=== PATIENT | female | born 1975 | race Caucasian/White ===

== ENCOUNTER 2016-04-26 19:18 | Emergency (ER) | payer OTHER ==
[~2016-04-26] VITALS: Ht 157.5 cm; Wt 76.2 kg
[~2016-04-26 19:18] MED LIST: AMITRIPTYLINE H10 MG PO; LORTAB 7.5/3251 TAB PO
[2016-04-26 20:06] LABS: HEMOGLOBIN 14.5 g/dL (12.2-16.2); LYMPH # 2.4 K/mm3 (0.7-4.5); LYMPH % 32.9 % (10-50.0)
[2016-04-26 20:15] LABS: BUN 14 mg/dL (7-18)
[2016-04-26 20:16] LABS: GFR (ESTIMATED) 93 ML/MIN (59-)
--- NOTE | 2016-04-26 20:57 | Emergency Room Report ---
History of Present Illness Time Seen by [id number] Presenting Problem in Triage Pt arrived:Walked Presenting Problem:PT COMPLAINING OF SHORTNESS OF BREATH. PT STATES SHE FEELS LIKE SHE CAN'T TAKE A DEEP BREATH. PT STATES THAT SHE HAS BEEN HAVING THIS FOR ALMOST 2 WEEKS BUT IT HAS GOTTEN WORSE TONIGHT. 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 N Clinical Suspician of Infection? N Mental Status: 1 - Regular (Normal Baseline) Sepsis Risk:Low Sepsis Risk Have you (or family members/close friends) recently traveled outside the [place]? N If Yes, where/when: Have you had exposure to infectious disease within the past month? N TB? Other? Specify: Source patient, RN notes reviewed, family, old records Exam Limitations no limitations Comment pt with chest pain assoc with insp and no prod cough and no trauma or rash - has hx of aortic valve replacement - no hemotysis and no fever - this has been going on for a few days Cardiac Chest Pain Chest pain indicative of cardiac No Timing/Duration this evening Severity moderate ALLERGIES Coded Allergies: codeine (04/26/16) Home Medications Reported Medications No Known Home Medications History Medical History General CAD? No Angina: No [place]: No Hypertension? No Hyperlipidemia? No CHF? No DVT? No PE? No COPD? No Asthma? No Anemia? No GERD? No Gastric ulcers? No GI Bleed? No Hernia? No Thyroid Problems? No Hypothyroidism? No CVA? No Seizures? No Diabetes? No Renal Insuffiency? No End Stage Renal Disease? No UTI? No Stones? Yes BPH? No GB Disease: Yes Nephritic Syndrome? No Asplenia? No Hepatitis? No Sickle Cell Disease? No Arthritis? No Migraines? No Cataracts? No Glaucoma? No MRSA? No HIV? No TB? No Anxiety? No Depression? No Cancer? No More? 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 Respiratory cough, denies shortness of breath, denies wheezing Cardiovascular denies chest pain, denies palpitations, denies syncope Gastrointestinal denies abdominal pain, denies diarrhea, denies vomiting Genitourinary denies: dysuria, frequency, hesitancy, hematuria. Musculoskeletal denies back pain, denies joint pain, denies joint swelling, denies neck pain Skin denies rash Psychiatric/Neurological denies headache, denies seizure Physical Exam Vital Signs Vital Signs Date Time Temp Pulse Resp B/P Pulse O2 O2 Flow FiO2 Ox Delivery Rate 04/26 2030 89 16 135/77 98 04/26 1958 18 04/26 1920 98.2 94 18 150/88 99 - WBC >12,000 or <4,000 or 10% bands? 2 or more SIRS Criteria Met? B/P:135/77 MAP:108 Creatinine >2.0? UA output<0.5ml/kg/hr for 2 hrs? Platelet count >100,000? Lactate >2.0mmol/1? INR >1.2 or PTT > than 60 sec? Evidence of Organ Dysfunction? Provider documented clinical suspician of infection? N Sepsis Criteria Count: 1 Sepsis Risk: Low Sepsis Risk General Appearance no apparent distress Eye Exam - bilateral eye PERRL, bilateral eye EOMI Ear, Nose, Throat normal ENT inspection Neck supple Respiratory Status No: respiratory distress. Lung Sounds bilateral: lungs clear. 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 No Results/Orders Laboratory Tests 04/26/16 1950: Sodium 140, Potassium 3.6, Chloride 103, Carbon Dioxide 29, BUN 14, Creatinine 0.7, Estimated Creat Clear 130, Estimated GFR (MDRD) 93, Glucose 107 H, Calcium 9.3, Total Bilirubin 0.7, AST 12 L, ALT 27, Alkaline Phosphatase 94, Creatine Kinase 45, CK-MB (CK-2) Rel Index 1.3, CK and CKMB Interp 0.6, Troponin I < 0.02 , Total Protein 8.4 H, Albumin 3.8, Globulin 4.6 H, Albumin/Globulin Ratio 0.8 L, D-Dimer 215, WBC 7.2, RBC 4.81, Hgb 14.5, Hct 42.7, MCV 88.8, RDW 12.9, Plt Count 218, MPV 9.1, Gran % 58.7, Gran # 4.2, Lymphocytes % 32.9, Monocytes % 6.3 , Eosinophils % 1.2, Basophils % 0.7, Lymphocytes # 2.4, Monocytes # 0.5, Eosinophils # 0.1, Basophils # 0.1, PUBS MCHC 34.0, MCH 30.2 Current Medication Orders Sig/Jonathan Start time Last Medication Dose Route Stop Time Status Admin Ketorolac 30 MG ONCE ONE 04/26 1999 DC 04/26 Tromethamine IV 04/26 Ondansetron HCl 4 MG ONCE ONE 04/26 1999 DC 04/26 IV 04/26 Ketorolac 0 .STK-MED ONE 04/26 1956 DC Tromethamine .ROUTE Ondansetron HCl 0 .STK-MED ONE 04/26 1956 DC .ROUTE Sodium Chloride 10 ML PRN PRN 04/26 1929 AC IV 04/27 1928 Orders Procedure Date/time Status ELECTROCARDIOGRAM REQUEST 04/26 1929 Active CHEST(2 VIEWS-NOT PORTABLE) 04/26 1929 Active IV SALINE LOCK 04/26 1929 Active D-DIMER 04/26 1929 Complete CBC WITH AUTO DIFF 04/26 1929 Complete CARDIAC ENZYMES 04/26 1929 Complete CHEM 12 PROFILE 04/26 1929 Complete 12 LEAD EKG-LALA (INITIAL) 04/26 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 ST/Twave chgs XRAY/CT/US XRAY/CT/US XRAY chest XR interpretation by reviewed by me Xray Results normal/NAD Departure Departure Time of Disposition 2104 Disposition DC Home or Self Care(routine) Clinical Impression Primary Impression: Pleurisy Condition STABLE Referrals Dave Ramirez MD (Family) Patient Instructions DI for Pleurisy Additional Instructions fluids and see pcp in am for follow up Discharge Counseling Counseled pt/family regarding diagnosis, test results, medications/RX, follow up needs Prescriptions Current Visit Scripts No Known Home Medications ED Critical Care Critical Care No at 210
--- NOTE | 2016-04-26 20:57 | Emergency Room Report ---
History of Present Illness Time Seen by [id number] Presenting Problem in Triage Pt arrived:Walked Presenting Problem:PT COMPLAINING OF SHORTNESS OF BREATH. PT STATES SHE FEELS LIKE SHE CAN'T TAKE A DEEP BREATH. PT STATES THAT SHE HAS BEEN HAVING THIS FOR ALMOST 2 WEEKS BUT IT HAS GOTTEN WORSE TONIGHT. 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 N Clinical Suspician of Infection? N Mental Status: 1 - Regular (Normal Baseline) Sepsis Risk:Low Sepsis Risk Have you (or family members/close friends) recently traveled outside the [place]? N If Yes, where/when: Have you had exposure to infectious disease within the past month? N TB? Other? Specify: Source patient, RN notes reviewed, family, old records Exam Limitations no limitations Comment pt with chest pain assoc with insp and no prod cough and no trauma or rash - has hx of aortic valve replacement - no hemotysis and no fever - this has been going on for a few days Cardiac Chest Pain Chest pain indicative of cardiac No Timing/Duration this evening Severity moderate ALLERGIES Coded Allergies: codeine (04/26/16) Home Medications Reported Medications No Known Home Medications History Medical History General CAD? No Angina: No [place]: No Hypertension? No Hyperlipidemia? No CHF? No DVT? No PE? No COPD? No Asthma? No Anemia? No GERD? No Gastric ulcers? No GI Bleed? No Hernia? No Thyroid Problems? No Hypothyroidism? No CVA? No Seizures? No Diabetes? No Renal Insuffiency? No End Stage Renal Disease? No UTI? No Stones? Yes BPH? No GB Disease: Yes Nephritic Syndrome? No Asplenia? No Hepatitis? No Sickle Cell Disease? No Arthritis? No Migraines? No Cataracts? No Glaucoma? No MRSA? No HIV? No TB? No Anxiety? No Depression? No Cancer? No More? 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 Respiratory cough, denies shortness of breath, denies wheezing Cardiovascular denies chest pain, denies palpitations, denies syncope Gastrointestinal denies abdominal pain, denies diarrhea, denies vomiting Genitourinary denies: dysuria, frequency, hesitancy, hematuria. Musculoskeletal denies back pain, denies joint pain, denies joint swelling, denies neck pain Skin denies rash Psychiatric/Neurological denies headache, denies seizure Physical Exam Vital Signs Vital Signs Date Time Temp Pulse Resp B/P Pulse O2 O2 Flow FiO2 Ox Delivery Rate 04/26 2030 89 16 135/77 98 04/26 1958 18 04/26 1920 98.2 94 18 150/88 99 - WBC >12,000 or <4,000 or 10% bands? 2 or more SIRS Criteria Met? B/P:135/77 MAP:108 Creatinine >2.0? UA output<0.5ml/kg/hr for 2 hrs? Platelet count >100,000? Lactate >2.0mmol/1? INR >1.2 or PTT > than 60 sec? Evidence of Organ Dysfunction? Provider documented clinical suspician of infection? N Sepsis Criteria Count: 1 Sepsis Risk: Low Sepsis Risk General Appearance no apparent distress Eye Exam - bilateral eye PERRL, bilateral eye EOMI Ear, Nose, Throat normal ENT inspection Neck supple Respiratory Status No: respiratory distress. Lung Sounds bilateral: lungs clear. 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 No Results/Orders Laboratory Tests 04/26/16 1950: Sodium 140, Potassium 3.6, Chloride 103, Carbon Dioxide 29, BUN 14, Creatinine 0.7, Estimated Creat Clear 130, Estimated GFR (MDRD) 93, Glucose 107 H, Calcium 9.3, Total Bilirubin 0.7, AST 12 L, ALT 27, Alkaline Phosphatase 94, Creatine Kinase 45, CK-MB (CK-2) Rel Index 1.3, CK and CKMB Interp 0.6, Troponin I < 0.02 , Total Protein 8.4 H, Albumin 3.8, Globulin 4.6 H, Albumin/Globulin Ratio 0.8 L, D-Dimer 215, WBC 7.2, RBC 4.81, Hgb 14.5, Hct 42.7, MCV 88.8, RDW 12.9, Plt Count 218, MPV 9.1, Gran % 58.7, Gran # 4.2, Lymphocytes % 32.9, Monocytes % 6.3 , Eosinophils % 1.2, Basophils % 0.7, Lymphocytes # 2.4, Monocytes # 0.5, Eosinophils # 0.1, Basophils # 0.1, PUBS MCHC 34.0, MCH 30.2 Current Medication Orders Sig/Jonathan Start time Last Medication Dose Route Stop Time Status Admin Ketorolac 30 MG ONCE ONE 04/26 1999 DC 04/26 Tromethamine IV 04/26 Ondansetron HCl 4 MG ONCE ONE 04/26 1999 DC 04/26 IV 04/26 Ketorolac 0 .STK-MED ONE 04/26 1956 DC Tromethamine .ROUTE Ondansetron HCl 0 .STK-MED ONE 04/26 1956 DC .ROUTE Sodium Chloride 10 ML PRN PRN 04/26 1929 AC IV 04/27 1928 Orders Procedure Date/time Status ELECTROCARDIOGRAM REQUEST 04/26 1929 Active CHEST(2 VIEWS-NOT PORTABLE) 04/26 1929 Active IV SALINE LOCK 04/26 1929 Active D-DIMER 04/26 1929 Complete CBC WITH AUTO DIFF 04/26 1929 Complete CARDIAC ENZYMES 04/26 1929 Complete CHEM 12 PROFILE 04/26 1929 Complete 12 LEAD EKG-LALA (INITIAL) 04/26 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 ST/Twave chgs XRAY/CT/US XRAY/CT/US XRAY chest XR interpretation by reviewed by me Xray Results normal/NAD Departure Departure Time of Disposition 2104 Disposition DC Home or Self Care(routine) Clinical Impression Primary Impression: Pleurisy Condition STABLE Referrals Dave Ramirez MD (Family) Patient Instructions DI for Pleurisy Additional Instructions fluids and see pcp in am for follow up Discharge Counseling Counseled pt/family regarding diagnosis, test results, medications/RX, follow up needs Prescriptions Current Visit Scripts No Known Home Medications ED Critical Care Critical Care No at 210
[2016-04-26 21:21] VITALS: BP 135/77
--- NOTE | 2016-04-27 07:56 | RADIOLOGY REPORT PS360 ---
CHEST(2 VIEWS-NOT PORTABLE) COMPARISON: None HISTORY: Short of breath TECHNIQUE: PA and lateral chest FINDINGS: The lung proctor are fairly well-expanded and appear clear of infiltrate. There is borderline cardio megaly and there are sternal wire sutures noted. There is no evidence of failure. The bony thorax is normal. IMPRESSION: Mild or borderline cardio megaly, no acute chest pathology noted
== END 2016-04-26 21:22 | disposition home or self-care (01) ==
LOC: ER 19:18
PROVIDERS: Emergency Medicine
DX: R09.1 Pleurisy (principal)
CPT/HCPCS: J2405